=== PATIENT | female | born 1965 | race Two or more races ===

== ENCOUNTER 2019-01-20 12:09 | Emergency (ER) | payer MEDICAID, OTHER ==
[2019-01-20 13:28] VITALS: BP 137/84
== END 2019-01-20 14:02 | disposition home or self-care (01) ==
LOC: ER 12:14
DX: S00.33XA Contusion of nose, initial encounter (principal); S00.83XA Contusion of other part of head, initial encounter; W50.0XXA Accidental hit or strike by another person, initial encounter; Y93.89 Activity, other specified; Y99.8 Other external cause status; Y92.89 Other specified places as the place of occurrence of the external cause
CPT/HCPCS: 70486

== ENCOUNTER 2023-08-02 13:05 | Inpatient (IN) | payer MEDICAID ==
[~2023-08-02] VITALS: Ht 162.6 cm; Wt 88.8 kg
[2023-08-02 14:05] LABS: Urine Bacteria NONE SEEN /hpf (None Seen); Urine Blood Negative /uL (Negative); Urine Clarity Clear (Clear); Urine Color Yellow (Yellow); Urine Protein, UAD Negative (Negative); Urine Specific Gravity 1.016 (1.001-1.035); Urine Urobilinogen Normal (Negative); Urine WBC 1 /hpf (0 - 5)
[2023-08-02 14:34] LABS: Basophils # (auto) 0 10 ^3/uL (0-0.2); Basophils % (auto) 0.5 % (0.0-2.0); Eosinophils # (auto) 0.1 10 ^3/uL (0-0.8); Eosinophils % (auto) 1.1 % (0.0-7.0); Hematocrit 39.9 % (36.0-46.0); Hemoglobin 13.6 g/dL (12.2-16.2); Lymphocytes # (auto) 2.4 10 ^3/uL (0.4-5.4); Lymphocytes % (auto) 36.1 % (10.0-50.0); Mean Corpuscular Volume 91.1 fL (80.0-100.0); Monocytes # (auto) 0.3 10 ^3/uL (0-1.3); Monocytes % (auto) 5.1 % (0.0-12.0); Neutrophils # (auto) 3.8 10 ^3/uL (1.6-8.6); Neutrophils % (auto) 57.2 % (37.0-80.0); Red Blood Cells 4.39 10^6/uL (4.0-5.20); Red Cell Distribution Width 13.3 % (11.8-14.3); White Blood Cell 6.7 10^3/uL (4.4-10.8)
[2023-08-02 15:00] LABS: Alanine Aminotransferase 18 U/L (7-40); Albumin 4.8 g/dL (3.2-4.8); Alkaline Phosphatase 101 U/L (46-116); Calcium 9.6 mg/dL (8.7-10.4); Chloride 104 mmol/L (98-107)
[2023-08-02 15:01] LABS: Anion Gap 9 (5-15); Aspartate Aminotransferase 18 U/L (13-40); BUN/Creatinine Ratio 17.8 (10.0-20.0); Bilirubin, Total 0.9 mg/dL (0.2-1.0); Blood Urea Nitrogen 13 mg/dL (9-23); Carbon Dioxide 27 mmol/L (20-30); Glucose 111 mg/dL (74-106); Potassium 4.1 mmol/L (3.5-5.1); Sodium 140 mmol/L (136-145); Total Protein 7.4 g/dL (5.7-8.2)
[2023-08-02] MEDS ORDERED: IBU600T PO (17:10)
[2023-08-02] MEDS ORDERED: SODIUM CHLORIDE 0.9% 1,000 ML IV ONE (17:15)
[2023-08-02] MEDS ORDERED: HYDROcodone-ACET 10/325MG TAB PO ONE (18:15)
[2023-08-02 19:51] VITALS: PULSE 64; RESP 20; O2SAT 99
[2023-08-02] MEDS ORDERED: ONDANSETRON ODT 4 MG TAB PO ONE (20:00)
[2023-08-02] MEDS ORDERED: ONDANSETRON HCL 4 MG/2 ML VIAL IV ONE (21:15)
[2023-08-02] MEDS ORDERED: MORPHINE SULFATE 4 MG/ML SYR/VIAL IV ONE (21:15)
[2023-08-02] MEDS ORDERED: diphenhdrAMINE HCL 50 MG/1 ML VL IV ONE (21:30)
[2023-08-02] MEDS ORDERED: ACETAMINOPHEN 325 MG TAB PO PRN (23:15)
[2023-08-02] MEDS ORDERED: MORPHINE SULFATE INJ 2 MG/ml SYRG IV PRN (23:15)
[2023-08-02] MEDS ORDERED: hydrALAZINE HCL 10 MG TAB PO PRN (23:15)
[2023-08-02] MEDS ORDERED: HYDROcodone-ACET 5/325MG TAB PO PRN (23:15)
[2023-08-02] MEDS ORDERED: ONDANSETRON HCL 4 MG/2 ML VIAL IV PRN (23:15)
[2023-08-02 23:53] LABS: INR 1.11 (0.9-1.15); Prothrombin Time 11.6 sec (9.3-11.8)
[2023-08-03] MEDS ORDERED: MORPHINE SULFATE 4 MG/ML SYR/VIAL IV ONE (03:30)
[2023-08-03] MEDS ORDERED: ONDANSETRON HCL 4 MG/2 ML VIAL IV ONE (03:30)
[2023-08-03] MEDS ORDERED: DEXTROSE (50%) 50ML SYRG IV PRN (04:00)
[2023-08-03] MEDS: ACCU-CHEK COMFORT CURVE STRIP VI SCH ×3 (05:55→18:08)
[2023-08-03] MEDS: InsuLIN REG 1unit/0.01ml Soln (100units/ml) SC SCH ×4 (05:57→18:00)
[2023-08-03 08:36] LABS: Basophils # (auto) 0 10 ^3/uL (0-0.2); Basophils % (auto) 0.5 % (0.0-2.0); Eosinophils # (auto) 0.1 10 ^3/uL (0-0.8); Eosinophils % (auto) 1.5 % (0.0-7.0); Hematocrit 39.1 % (36.0-46.0); Lymphocytes # (auto) 2.3 10 ^3/uL (0.4-5.4); Mean Corpuscular Hemoglobin 30.9 pg (28.0-32.0); Mean Corpuscular Hgb Conc. 33.4 g/dL (32.0-36.0); Mean Corpuscular Volume 92.7 fL (80.0-100.0); Monocytes # (auto) 0.4 10 ^3/uL (0-1.3); Monocytes % (auto) 7.8 % (0.0-12.0); Neutrophils # (auto) 2.7 10 ^3/uL (1.6-8.6); Neutrophils % (auto) 49.2 % (37.0-80.0); Nucleated Red Blood Cells % 0.1 %; Red Blood Cells 4.22 10^6/uL (4.0-5.20); Red Cell Distribution Width 13.8 % (11.8-14.3); White Blood Cell 5.5 10^3/uL (4.4-10.8)
[2023-08-03 09:12] LABS: Alanine Aminotransferase 20 U/L (7-40); Albumin 4.4 g/dL (3.2-4.8); Alkaline Phosphatase 80 U/L (46-116); Anion Gap 7 (5-15); Aspartate Aminotransferase 16 U/L (13-40); BUN/Creatinine Ratio 15.7 (10.0-20.0); Blood Urea Nitrogen 13 mg/dL (9-23); Calcium 9.2 mg/dL (8.5-10.1); Carbon Dioxide 27 mmol/L (20-30); Chloride 109 mmol/L (98-107); Glucose 76 mg/dL (74-106); Potassium 4.2 mmol/L (3.5-5.1); Sodium 143 mmol/L (136-145)
[2023-08-03 09:13] LABS: Bilirubin, Total 0.9 mg/dL (0.2-1.0); Total Protein 6.9 g/dL (5.7-8.2)
[2023-08-03] MEDS: HYDROcodone-ACET 5/325MG TAB PO PRN ×3 (09:21→22:09)
[2023-08-03] MEDS: PANTOPRAZOLE 40 MG TAB PO SCH (09:21)
[2023-08-03] MEDS: LISINOPRIL 10 MG TAB PO SCH (09:22)
[2023-08-03 09:32] VITALS: PULSE 74; RESP 18; O2SAT 95
[2023-08-03 13:12] LABS: Lipase 134 U/L (12-53)
[2023-08-03] MEDS ORDERED: IOHEXOL 350 MG/ML 100ML IJ ONE ×2 (15:06→16:31)
[2023-08-03] MEDS: ATORVASTATIN 20 MG TAB PO SCH (22:10)
[2023-08-04 05:53] LABS: Basophils # (auto) 0 10 ^3/uL (0-0.2); Basophils % (auto) 0.5 % (0.0-2.0); Eosinophils # (auto) 0.1 10 ^3/uL (0-0.8); Eosinophils % (auto) 2.4 % (0.0-7.0); Hematocrit 37.6 % (36.0-46.0); Hemoglobin 12.7 g/dL (12.2-16.2); Lymphocytes % (auto) 40.2 % (10.0-50.0); Mean Corpuscular Hemoglobin 30.6 pg (28.0-32.0); Mean Corpuscular Hgb Conc. 33.7 g/dL (32.0-36.0); Mean Corpuscular Volume 90.8 fL (80.0-100.0); Monocytes # (auto) 0.4 10 ^3/uL (0-1.3); Monocytes % (auto) 7.6 % (0.0-12.0); Neutrophils # (auto) 2.4 10 ^3/uL (1.6-8.6); Neutrophils % (auto) 49.3 % (37.0-80.0); Nucleated Red Blood Cells % 0.1 %; Red Blood Cells 4.14 10^6/uL (4.0-5.20); Red Cell Distribution Width 13.5 % (11.8-14.3); White Blood Cell 4.9 10^3/uL (4.4-10.8)
[2023-08-04] MEDS: InsuLIN REG 1unit/0.01ml Soln (100units/ml) SC SCH ×5 (06:00→22:02)
[2023-08-04] MEDS: ACCU-CHEK COMFORT CURVE STRIP VI SCH ×5 (06:12→22:02)
[2023-08-04 06:16] LABS: Alanine Aminotransferase 21 U/L (7-40); Albumin 4.2 g/dL (3.2-4.8); Alkaline Phosphatase 80 U/L (46-116); Anion Gap 6 (5-15); Aspartate Aminotransferase 19 U/L (13-40); BUN/Creatinine Ratio 15.7 (10.0-20.0); Blood Urea Nitrogen 11 mg/dL (9-23); Calcium 9.1 mg/dL (8.7-10.4); Carbon Dioxide 30 mmol/L (20-30); Chloride 105 mmol/L (98-107); Glucose 98 mg/dL (74-106); Lipase 60 U/L (12-53); Sodium 141 mmol/L (136-145)
[2023-08-04 06:17] LABS: Bilirubin, Total 1.2 mg/dL (0.2-1.0); Total Protein 6.5 g/dL (5.7-8.2)
[2023-08-04] MEDS: HYDROcodone-ACET 5/325MG TAB PO PRN ×4 (06:23→20:26)
[2023-08-04 08:00] VITALS: PULSE 62; RESP 62; O2SAT 96
[2023-08-04 08:59] LABS: Amphetamine Screen, Urine Neg (NEGATIVE); Barbiturate Scree,Urine Neg (NEGATIVE); Benzodiazephine Screen, Urine Neg (NEGATIVE); Cannabinoid Screen, Urine Neg (NEGATIVE); Cocaine Screen, Urine Neg (NEGATIVE); Opiate Scree,Urine Neg (NEGATIVE); Phencyclidine Screen, Urine Neg (NEGATIVE)
[2023-08-04] MEDS: LISINOPRIL 10 MG TAB PO SCH (10:33)
[2023-08-04] MEDS: PANTOPRAZOLE 40 MG TAB PO SCH (10:33)
[2023-08-04] MEDS ORDERED: DEXTROSE (50%) 50ML SYRG IV PRN (13:45)
[2023-08-04 17:08] VITALS: BP 119/73; PULSE 63; RESP 18; TEMP 98.3; O2SAT 100
[2023-08-04] MEDS ORDERED: METF-372 PO (19:31)
[2023-08-04] MEDS ORDERED: PANT40TA57 PO (19:31)
[2023-08-04] MEDS ORDERED: LISI10TA34 PO (19:31)
[2023-08-04] MEDS ORDERED: GABA-1250 PO (19:31)
[2023-08-04] MEDS ORDERED: ESCI1TAB36 PO (19:31)
[2023-08-04] MEDS ORDERED: ATOR10TA52 PO (19:31)
[2023-08-04] MEDS ORDERED: ASPI81TA28 PO (19:31)
[2023-08-04 20:00] VITALS: BP 118/66; PULSE 65; RESP 18; TEMP 98.1; O2SAT 97
[2023-08-04] MEDS: ATORVASTATIN 20 MG TAB PO SCH (21:59)
[2023-08-04 22:00] VITALS: BP 118/66; PULSE 65; RESP 18; TEMP 98.1; O2SAT 97
[2023-08-05 05:00] VITALS: BP 113/62; PULSE 53; RESP 18; TEMP 97.9; O2SAT 97
[2023-08-05] MEDS: InsuLIN REG 1unit/0.01ml Soln (100units/ml) SC SCH ×4 (06:28→21:47)
[2023-08-05] MEDS: ACCU-CHEK COMFORT CURVE STRIP VI SCH ×4 (06:28→21:41)
[2023-08-05 09:00] VITALS: BP 94/46; PULSE 66; RESP 16; TEMP 98.3; O2SAT 98
[2023-08-05] MEDS: HYDROcodone-ACET 5/325MG TAB PO PRN (10:13)
[2023-08-05] MEDS: PANTOPRAZOLE 40 MG TAB PO SCH (10:13)
[2023-08-05] MEDS: LISINOPRIL 10 MG TAB PO SCH (10:15)
[2023-08-05] MEDS ORDERED: HYDROmorphone HCL 2 MG/ML VL/or syr IV PRN (12:15)
[2023-08-05] MEDS: ONDANSETRON HCL 4 MG/2 ML VIAL IV PRN (14:53)
[2023-08-05 17:00] VITALS: BP 115/71; PULSE 60; RESP 18; TEMP 98.1; O2SAT 100
[2023-08-05 20:00] VITALS: BP 124/70; PULSE 64; RESP 18; TEMP 98; O2SAT 98
[2023-08-05] MEDS: ATORVASTATIN 20 MG TAB PO SCH (21:44)
[2023-08-05 22:22] VITALS: BP 124/70; PULSE 64; RESP 18; TEMP 98; O2SAT 98
[2023-08-06] VITALS (7 sets, daily range): BP systolic 96–117; BP diastolic 53–67; PULSE 53–70; RESP 16–20; TEMP 97.1–98.4; O2SAT 94–99
[2023-08-06] MEDS: InsuLIN REG 1unit/0.01ml Soln (100units/ml) SC SCH ×4 (06:49→22:50)
[2023-08-06] MEDS: ACCU-CHEK COMFORT CURVE STRIP VI SCH ×4 (06:49→22:49)
[2023-08-06 07:28] LABS: INR 1.12 (0.9-1.15); Partial Thromboplastin Time 26.8 SEC (24.5-34.5); Prothrombin Time 11.7 sec (9.3-11.8)
[2023-08-06] MEDS: PANTOPRAZOLE 40 MG TAB PO SCH (09:44)
[2023-08-06] MEDS: LISINOPRIL 10 MG TAB PO SCH (09:44)
[2023-08-06] MEDS: ONDANSETRON HCL 4 MG/2 ML VIAL IV PRN (09:44)
[2023-08-06] MEDS: ACETAMINOPHEN 325 MG TAB PO PRN (09:45)
[2023-08-06] MEDS ORDERED: LIDOCAINE VISCOUS 2% 15ML UD ONE (12:05)
[2023-08-06] MEDS ORDERED: NALOXONE HCL 0.4 MG/ML VIAL ONE (12:05)
[2023-08-06] MEDS ORDERED: FLUMAZENIL 0.1 MG/ML INJ 10ML MDV IV ONE (12:05)
[2023-08-06] MEDS ORDERED: SODIUM CHLORIDE LOCK 10 ML ONE (12:05)
[2023-08-06] MEDS: fentaNYL CITRATE 100 MCG/2 ML VL ONE ×2 (13:37→13:40)
[2023-08-06] MEDS: MIDAZOLAM HCL 5 MG/ML-1ML VIAL ONE ×2 (13:37→13:40)
[2023-08-06] MEDS: diphenhdrAMINE HCL 50 MG/1 ML VL ONE ×2 (13:37→13:38)
[2023-08-06] MEDS: SUCRALFATE 1 GM/10 ML ORAL SUSP PO SCH ×2 (18:21→22:39)
[2023-08-06] MEDS: ATORVASTATIN 20 MG TAB PO SCH (22:42)
[2023-08-07 04:43] VITALS: BP 91/61; PULSE 53; RESP 16; TEMP 97.6; O2SAT 99
[2023-08-07] MEDS: InsuLIN REG 1unit/0.01ml Soln (100units/ml) SC SCH ×2 (07:00→11:30)
[2023-08-07] MEDS: SUCRALFATE 1 GM/10 ML ORAL SUSP PO SCH ×2 (07:02→09:50)
[2023-08-07] MEDS: ACCU-CHEK COMFORT CURVE STRIP VI SCH ×2 (07:03→11:30)
[2023-08-07 08:00] VITALS: PULSE 54; RESP 17; O2SAT 98
[2023-08-07] MEDS ORDERED: SUCR1TAB22 PO (08:19)
[2023-08-07] MEDS ORDERED: PANT40T PO (08:19)
[2023-08-07 09:00] VITALS: BP 93/47; PULSE 54; RESP 17; TEMP 97.5; O2SAT 99
[2023-08-07] MEDS: PANTOPRAZOLE 40 MG TAB PO SCH (09:50)
[2023-08-07] MEDS: LISINOPRIL 10 MG TAB PO SCH (09:50)
[2023-08-07 11:10] VITALS: BP 93/47; PULSE 54; RESP 17; TEMP 97.5; O2SAT 99
[2023-08-07] MEDS: ONDANSETRON HCL 4 MG/2 ML VIAL IV PRN (11:25)
[2023-08-07] MEDS: ACETAMINOPHEN 325 MG TAB PO PRN (11:25)
[2023-08-07 12:59] VITALS: BP 118/68; PULSE 69; RESP 18; TEMP 97.8; O2SAT 100
== END 2023-08-07 13:00 | disposition home or self-care (01) | DRG 282 ==
LOC: ER 13:05 → OVERFLOW 23:08 → OBSVTOIN 08-03 14:23 → CENTRAL 08-04 13:51
PROVIDERS: ADMIT Internal Medicine; ATTEND Family Medicine
PROC: 0DB68ZX Excision of Stomach, Via Natural or Artificial Opening Endoscopic, Diagnostic (ICD-10-PCS; 2023-08-06)
PROC: 0DB98ZX Excision of Duodenum, Via Natural or Artificial Opening Endoscopic, Diagnostic (ICD-10-PCS; principal; 2023-08-06 13:29)
DX: K85.90 Acute pancreatitis without necrosis or infection, unspecified (principal); I72.8 Aneurysm of other specified arteries; K29.80 Duodenitis without bleeding; K57.30 Diverticulosis of large intestine without perforation or abscess without bleeding; K29.70 Gastritis, unspecified, without bleeding; I10 Essential (primary) hypertension; N20.0 Calculus of kidney; E78.00 Pure hypercholesterolemia, unspecified; E11.65 Type 2 diabetes mellitus with hyperglycemia; Z90.49 Acquired absence of other specified parts of digestive tract
CPT/HCPCS: 36415; 43239; 71250; 74175; 74176; 76705; 80053; 80307; 80320; 81001; 82962; 83605; 83690; 85025; 85610; 85730; 86850; 86900; 86901; 96361; 96374; 96375; 97163; G0378; J1815; J2250; J2405; Q0162